=== PATIENT | male | born 1985 | race Caucasian/White ===

== ENCOUNTER 2016-10-18 11:45 | Emergency (ER) | payer OTHER ==
[~2016-10-18] VITALS: Ht 177.8 cm; Wt 65.8 kg
[~2016-10-18 11:45] MED LIST: BACTRIM DS 8001 TA1 PO; CARAFATE1 GM/10 ML PO; CLARITIN10 MG PO; KEFLEX500 MG PO; NKHM; PREDNISONE10 MG PO; ROBITUSSIN AC 110 ML PO; VOLTAREN50 M1 PO; ZITHROMAX250 MG PO
[2016-10-18] MEDS ORDERED: CEPHALEXIN500 M1 PO (13:10)
== END 2016-10-18 13:52 | disposition home or self-care (01) ==
LOC: ED 11:45
DX: L03.113 Cellulitis of right upper limb (principal)

== ENCOUNTER → 2017-06-29 | Outpatient (CLI) | payer OTHER ==
[~2017-06-29] MED LIST changes: +CEPHALEXIN500 M1 PO
[2017-06-29 12:00] LABS: THYROXINE (T4) TOTAL 8.1 ug/dl (4.5-12.1)
[2017-06-29 12:07] LABS: THYROID STIM HORMONE (HS) 0.665 uIU/ml (0.358-4.75)
== END | disposition home or self-care (01) ==
LOC: LAB 10:32
PROVIDERS: Nurse Practitioner Family
DX: F41.9 Anxiety disorder, unspecified (principal)

== ENCOUNTER 2017-08-02 14:09 | Emergency (ER) | payer OTHER ==
[~2017-08-02] VITALS: Ht 170.1 cm; Wt 74.4 kg
[2017-08-02] MEDS ORDERED: AMOXICILLIN500 M3 PO (14:32)
[2017-08-02] MEDS ORDERED: DEBROX15 ML OT (14:32)
== END 2017-08-02 14:39 | disposition home or self-care (01) ==
LOC: ED 14:09
DX: H66.91 Otitis media, unspecified, right ear (principal)

== ENCOUNTER 2017-08-16 16:50 | Emergency (ER) | payer OTHER ==
[~2017-08-16] VITALS: Wt 78.9 kg
[~2017-08-16 16:50] MED LIST changes: +AMOXICILLIN500 M3 PO; +DEBROX15 ML OT
[2017-08-16] MEDS ORDERED: DOXYCYCLINE100 M3 PO (16:55)
[2017-08-16 17:41] LABS: BASO # 0.1 10*3/uL (0.0-0.1); BASO % 0.7 % (0.0-1.0); EOS % 9.3 % (1.0-4.0); HEMATOCRIT 50.2 % (42.0-52.0); HEMOGLOBIN 16.8 g/dl (14.0-18.0); LYMPH # 2.1 10*3/uL (1.3-4.4); LYMPH % 20.9 % (27.0-41.0); MEAN CELL VOLUME 87.2 fl (80.0-94.0); MEAN CORPUSCULAR HGB 29.2 pg (27.0-31.0); MEAN CORPUSCULAR HGB CONC 33.5 g/dl (33.0-37.0); MEAN PLATELET VOLUME 11.5 fl (9.6-12.3); MONO # 0.8 10*3/uL (0.1-1.0); MONO % 8.2 % (3.0-9.0); NEUT # 6.2 10*3/uL (2.3-7.9); NEUT % 60.7 % (47.0-73.0); PLATELET COUNT AUTOMATED 282 10*3/uL (130-400); RED BLOOD COUNT 5.76 10*6/uL (4.50-5.90); RED CELL DISTRI WIDTH 12.7 % (0-14.5); WHITE BLOOD COUNT 10.3 10*3/uL (4.8-10.8)
[2017-08-16 17:56] LABS: ALBUMIN 4.1 gm/dl (3.1-4.5); ALKALINE PHOSPHATASE 87 U/L (45-117); BUN 12 mg/dl (7-24); CHLORIDE 104 mmol/L (98-107); CREATININE 0.77 mg/dL (0.70-1.30); POTASSIUM 3.8 mmol/L (3.5-5.1); SGOT/AST 13 IU/L (3-35); SGPT/ALT 22 U/L (12-78); SODIUM 138 mmol/L (136-145); TOTAL PROTEIN 8.3 gm/dL (6.4-8.2)
[2017-08-16] MEDS ORDERED: PREDNISONE20 M1 PO (18:51)
[2017-08-16] MEDS ORDERED: CHERATUSSIN AC118 M1 PO (18:53)
== END 2017-08-16 18:58 | disposition home or self-care (01) ==
LOC: ED 16:50
PROVIDERS: Nurse Practitioner Family
DX: J20.9 Acute bronchitis, unspecified (principal); Z98.890 Other specified postprocedural states

== ENCOUNTER 2019-06-14 14:36 | Emergency (ER) | payer OTHER ==
[~2019-06-14] VITALS: Ht 177.8 cm; Wt 77.1 kg
[~2019-06-14 14:36] MED LIST changes: +CHERATUSSIN AC118 M1 PO; +DOXYCYCLINE100 M3 PO; +PREDNISONE20 M1 PO
== END 2019-06-14 16:12 | disposition home or self-care (01) ==
LOC: ED 14:36
DX: S70.02XA Contusion of left hip, initial encounter (principal); Z79.899 Other long term (current) drug therapy; Z79.2 Long term (current) use of antibiotics; W19.XXXA Unspecified fall, initial encounter; Y93.89 Activity, other specified; Y92.89 Other specified places as the place of occurrence of the external cause; Y99.8 Other external cause status

== ENCOUNTER 2021-12-18 15:57 | Emergency (ER) | payer OTHER ==
[~2021-12-18] VITALS: Wt 68.5 kg
== END 2021-12-18 20:14 | disposition home or self-care (01) ==
LOC: ED 15:57
DX: S60.222A Contusion of left hand, initial encounter (principal); Z98.890 Other specified postprocedural states; Z79.899 Other long term (current) drug therapy; W18.30XA Fall on same level, unspecified, initial encounter; Y93.89 Activity, other specified; Y92.89 Other specified places as the place of occurrence of the external cause; Y99.9 Unspecified external cause status

== ENCOUNTER 2022-02-12 18:35 | Emergency (ER) | payer OTHER ==
[~2022-02-12] VITALS: Wt 68.0 kg
[2022-02-12] MEDS ORDERED: AMOX-CLAV 875-1 EACH PO (21:03)
== END 2022-02-12 21:10 | disposition home or self-care (01) ==
LOC: ED 18:35
DX: S81.851A Open bite, right lower leg, initial encounter (principal); W54.0XXA Bitten by dog, initial encounter; Y93.89 Activity, other specified; Y92.89 Other specified places as the place of occurrence of the external cause; Y99.8 Other external cause status

== ENCOUNTER 2022-07-19 17:10 | Emergency (ER) | payer OTHER ==
[~2022-07-19] VITALS: Ht 177.8 cm; Wt 68.0 kg
[~2022-07-19 17:10] MED LIST changes: +AMOX-CLAV 875-1 EACH PO
[2022-07-19 18:00] LABS: BASO # 0.1 10*3/uL (0.0-0.1); BASO % 0.7 % (0.0-1.0); EOS # 0.2 10*3/uL (0.0-0.4); EOS % 2.1 % (1.0-4.0); HEMATOCRIT 42.5 % (42.0-52.0); LYMPH # 1.9 10*3/uL (1.3-4.4); LYMPH % 24.8 % (27.0-41.0); MEAN CELL VOLUME 89.5 fl (80.0-94.0); MEAN CORPUSCULAR HGB 29.7 pg (27.0-31.0); MEAN CORPUSCULAR HGB CONC 33.2 g/dl (33.0-37.0); MEAN PLATELET VOLUME 11.2 fl (9.6-12.3); MONO # 0.7 10*3/uL (0.1-1.0); MONO % 8.6 % (3.0-9.0); NEUT # 4.8 10*3/uL (2.3-7.9); NEUT % 63.5 % (47.0-73.0); PLATELET COUNT AUTOMATED 229 10*3/uL (130-400); RED BLOOD COUNT 4.75 10*6/uL (4.50-5.90); RED CELL DISTRI WIDTH 12.4 % (0-14.5); WHITE BLOOD COUNT 7.6 10*3/uL (4.8-10.8)
[2022-07-19 18:17] LABS: ALKALINE PHOSPHATASE 52 U/L (46-116); BUN 10 mg/dl (9-23); CHLORIDE 101 mmol/L (98-107); POTASSIUM 3.4 mmol/L (3.4-5.1); SGPT/ALT 18 U/L (10-49); TOTAL PROTEIN 7.3 gm/dL (6.0-8.0)
[2022-07-19] MEDS ORDERED: SEPTDS PO (18:34)
== END 2022-07-19 18:41 | disposition home or self-care (01) ==
LOC: ED 17:10
PROVIDERS: Nurse Practitioner Family
DX: L03.114 Cellulitis of left upper limb (principal); Z98.890 Other specified postprocedural states

== ENCOUNTER 2024-10-06 13:30 | Emergency (ER) | payer OTHER ==
[~2024-10-06] VITALS: Ht 182.8 cm; Wt 63.5 kg
[~2024-10-06 13:30] MED LIST changes: +SEPTDS PO
[2024-10-06] MEDS ORDERED: Lidocaine Hydrochloride 2% 5 ML SDV IM ONE (13:55)
[2024-10-06] MEDS ORDERED: Tdap Vaccine 0.5 ML SYR (Adult Vaccine) IM ONE (14:10)
[2024-10-06] MEDS ORDERED: Bacitracin Zinc 14 GM TUBE T ONE (14:15)
== END 2024-10-06 14:14 | disposition home or self-care (01) ==
LOC: ED 13:30
DX: S01.81XA Laceration without foreign body of other part of head, initial encounter (principal); Z98.890 Other specified postprocedural states; W01.10XA Fall on same level from slipping, tripping and stumbling with subsequent striking against unspecified object, initial encounter; Y93.K1 Activity, walking an animal; Y92.488 Other paved roadways as the place of occurrence of the external cause; Y99.8 Other external cause status

== ENCOUNTER 2024-10-15 08:18 | Emergency (ER) | payer OTHER ==
[~2024-10-15] VITALS: Wt 84.8 kg
[2024-10-15] MEDS ORDERED: VENLAFAXINE HYD75 M3 PO (08:38)
== END 2024-10-15 08:57 | disposition home or self-care (01) ==
LOC: ED 08:18
DX: S01.81XD Laceration without foreign body of other part of head, subsequent encounter (principal); Z48.02 Encounter for removal of sutures; W22.8XXD Striking against or struck by other objects, subsequent encounter